=== PATIENT | male | born 1950 | race Caucasian/White ===

== ENCOUNTER → 2024-02-29 15:12 | Outpatient (REF) | payer MEDICARE, SELFPAY | LOC: RAD 15:12 | PROVIDERS: ATTENDING PHYSICIAN Internal Medicine | DX: M54.31 Sciatica, right side (principal); M25.551 Pain in right hip | CPT/HCPCS: 72110; 73502 ==

== ENCOUNTER → 2024-04-21 14:45 | Outpatient (REF) | payer MEDICARE, SELFPAY | LOC: MRI 3T 14:45 | PROVIDERS: ATTENDING PHYSICIAN Specialist; FAMILY PHYSICIAN Internal Medicine | DX: M54.16 Radiculopathy, lumbar region (principal) | CPT/HCPCS: 72148; 73721 ==

== ENCOUNTER → 2024-10-16 11:09 | Outpatient (REF) | payer MEDICARE, SELFPAY | LOC: DHSLP 11:09 | PROVIDERS: ATTENDING PHYSICIAN Internal Medicine; FAMILY PHYSICIAN Internal Medicine | DX: G47.30 Sleep apnea, unspecified (principal); R40.0 Somnolence; R06.83 Snoring | CPT/HCPCS: 95800 ==

== ENCOUNTER → 2025-07-26 18:23 | Outpatient (REF) | payer MEDICARE, SELFPAY | LOC: MRI 3T 18:23 | PROVIDERS: ATTENDING PHYSICIAN Urology; FAMILY PHYSICIAN Internal Medicine | DX: R97.20 Elevated prostate specific antigen [PSA] (principal) | CPT/HCPCS: 72197; A9575 ==

== ENCOUNTER → 2025-10-22 14:49 | Outpatient (REF) | payer MEDICARE, SELFPAY | LOC: RAD 14:49 | PROVIDERS: ATTENDING PHYSICIAN Internal Medicine | DX: M25.512 Pain in left shoulder (principal) | CPT/HCPCS: 73030 ==